=== PATIENT | male | born 1940 | race Caucasian/White ===

== ENCOUNTER 2017-12-19 10:27 | Inpatient (IN) ==
[2017-12-19] MEDS ORDERED: *HR* HYDROcodone/Acet 5/325 mg TABLET PO ONE (12:14)
--- NOTE | 2017-12-19 12:41 | Emergency Department Note ---
START Narrative - START START: I examined this patient and my medical decision-making was reviewed with the Resident Physician. I agree with the documented findings, disposition and treatment plan as described except to the extent set forth below. 77-year-old male who suffered a left tibial plateau fracture is here in the ER today as he is unable to get around well at home. Patient will be admitted to the hospital service and consult with orthopedics. Patient is unable to get around well at home. He is unable to ambulate. The family cannot take care of him
--- NOTE | 2017-12-19 12:50 | Emergency Department Note ---
Disposition Clinical Impression: Tibial plateau fracture, left Qualifiers: Encounter type: initial encounter Fracture type: closed Qualified Code(s): S82.142A - Displaced bicondylar fracture of left tibia, initial encounter for closed fracture Disposition: Admitted As Inpatient Condition: Fair Time of Disposition: 12:51 General Adult HPI - General Chief complaint: ED Extremity Injury, Lower Stated complaint: re-eval LLE injury Time Seen by Provider: 12/19/17 10:49 Source: family Mode of arrival: EMS Limitations: no limitations Nursing Notes Reviewed: Yes Vital Signs Reviewed: Yes - History of Present Illness HPI Narrative: Patient is a 77-year-old male with a past medical history CVA, DM, and HTN presents to the ED for reevaluation of a left tibial plateau fracture. Patient states he incidentally occurred 3 days ago when he slipped on ice on his front porch and fell down onto his left knee and is evaluated at an outside emergency department and diagnosed with a fracture and notified to follow-up with orthopedics Dr. Hahn on the following day. His states that they had difficulty getting him transferred to his appointments and had no other option but to manage transport to the [place] in which she was transferred here. His states that she does not feel safe taking him home because she is unable to transport him or find him transportation she prefer that he be admitted to have his fracture addressed. Patient has no other complaints at this time states that his pain is controlled with the knee immobilizer on. Denies any numbness or tingling of the lower extremity. Pain Scale: 8 - Related Data Home Medications Medication Instructions Recorded Confirmed Aspirin [Adult Aspirin Regimen] 81 mg PO DAILY 12/19/17 12/19/17 Atenolol [Tenormin] 12.5 mg PO DAILY 12/19/17 12/19/17 Atorvastatin [Lipitor] 40 mg PO HS 12/19/17 12/19/17 Cholecalciferol (D-3) [Vitamin D] 5,000 unit PO DAILY 12/19/17 12/19/17 Clopidogrel [Plavix] 75 mg PO DAILY 12/19/17 12/19/17 FLUoxetine HCl [PROzac] 30 mg PO DAILY 12/19/17 12/19/17 Finasteride [Proscar] 5 mg PO DAILY 12/19/17 12/19/17 GlipiZIDE [Glipizide Xl] 2.5 mg PO DAILY 12/19/17 12/19/17 Melatonin/Pyridoxine HCl (B6) 1 tab PO HS 12/19/17 12/19/17 [Melatonin 5 mg Tablet] Multivitamin [One Daily 1 tab PO DAILY 12/19/17 12/19/17 Multivitamin] Potassium Chloride [Klor-Con 10] 20 meq PO BID 12/19/17 12/19/17 Ranitidine HCl [Zantac] 150 mg PO BID 12/19/17 12/19/17 amLODIPine [Norvasc] 5 mg PO DAILY 12/19/17 12/19/17 hydroCHLOROthiazide 25 mg PO DAILY 12/19/17 12/19/17 [Hydrochlorothiazide] Allergies Allergy/AdvReac Type Severity Reaction Status Date / Time No Known Allergies Allergy Verified 12/19/17 14:19 All systems ED: reviewed and negative except as stated. Review of Systems: As Per HPI Constitutional: Denies: fever, chills Musculoskeletal: Reports: other (Pain below left knee. Knee immobilizer in place. ) Integumentary: Denies: rash Past Medical History - Past Medical History Attestation: Yes The following information was validated with the patient. Medical history: Reports: cancer, CVA, diabetes, hypertension Psychiatric history: Reports: anxiety - Social History Smoking Status: Current every day smoker Smokeless Tobacco Status: No Alcohol use: Reports: occasionally Drug use: Reports: none Physical Exam CONSTITUTIONAL: Alert and oriented X3, well-nourished, well appearing, in no apparent distress HEAD: Normocephalic; atraumatic. EYES: PERRL, no scleral icterus. NOSE: The nose is normal in appearance without rhinorrhea RESP: Normal chest excursion with respiration; breath sounds clear and equal bilaterally; no wheezes, rhonchi, or rales CARD: Regular rhythm, without murmurs, rub or gallop ABD: Non-distended; non-tender, soft,without rigidity, rebound or guarding EXT: Patient has tenderness over the medial aspect of the proximal portion of his left tibia. He did have a knee immobilizer and placed on arrival. He has limited range of motion in the left knee due to pain. No area of ecchymosis. Small abrasion over anterior proximal tibia. Patient has 2+ DP pulses, normal color and no edema present bilaterally. SKIN: Normal for age and race; warm and dry; no apparent lesions - General Limitations: no limitations General appearance: alert Course Course Narrative: Discussed with the patient that his repeat x-ray findings are consistent with his history from his prior visit and outside facility. Discussed consult with orthopedics Dr. Whaley and plans for the patient to be admitted to the hospital for further evaluation and treatment of his fracture. I also ordered the patient a [place] for pain relief. I discussed the patient's case with the hospitalist cash application clerk Dr. Jones he agreed to accept the patient. Vital Signs Temperature 98.8 F 12/19/17 10:34 Pulse Rate 75 12/19/17 10:34 Respiratory Rate 18 12/19/17 10:34 Blood Pressure 173/82 12/19/17 10:34 O2 Sat by Pulse Oximetry 94 12/19/17 10:34 Temperature 98.3 F 12/19/17 19:23 Pulse Rate 80 12/19/17 19:23 Respiratory Rate 17 12/19/17 19:23 Blood Pressure 144/81 12/19/17 19:23 O2 Sat by Pulse Oximetry 91 12/19/17 19:23 Oxygen Delivery Oxygen Delivery Room Air Medical Decision Making - Medical Records Medical records reviewed: Yes I reviewed the patient's medical records. - Lab Data Result diagrams: 12/19/17 15:01 12/19/17 15:01 - Radiology Data Radiology results reviewed: Yes I reviewed the patient's radiology results. Knee X-Ray 12/19/17 11:18 IMPRESSION: 1. Comminuted fracture involving the medial tibial plateau, extending intra-articularly through the tibial spines and lateral tibial plateau. D/ / 12/19/2017 12:41:55 Castro Hinojosa MD / aneta Interpreting Provider: Castro Hinojosa MD
[2017-12-19] MEDS ORDERED: Naloxone 0.4 MG/ML INJ IVP PRN ×2 (13:06→14:06)
[2017-12-19] MEDS ORDERED: Acetaminophen 325 MG TABLET PO PRN (14:06)
[2017-12-19] MEDS ORDERED: *HR* HYDROcodone/Acet 5/325 mg TABLET PO PRN (14:06)
[2017-12-19] MEDS ORDERED: *HR* Dextrose 50 % in Water (Syg) 50 ML SYRINGE IVP PRN (14:27)
[2017-12-19] MEDS ORDERED: D5% in Water 1,000 ML IVC PRN (14:27)
[2017-12-19] MEDS ORDERED: Dextrose Gel 15 GM/37.5 ML TUBE PO PRN ×2 (14:27)
--- NOTE | 2017-12-19 15:07 | Internal Med History&Physical ---
Date of Encounter: 12/19/17 Time of Encounter: 14:58 Assessment and Plan (1) Tibial plateau fracture, left Current visit: Yes Status: Acute - Leg leg has a brace on, ortho consulted. - DVT prophylaxis. Qualifiers: Encounter type: initial encounter Fracture type: closed Qualified Code(s) : S82.142A - Displaced bicondylar fracture of left tibia, initial encounter for closed fracture (2) CAD (coronary artery disease) Current visit: No Status: Chronic - Hx of CAD with 2 stents. - discussed with ortho, continue asa and plavix for now, continue other home meds for CAD including BB and statins. - continue tele. Qualifiers: Coronary Disease-Associated Artery/Lesion type: [place] artery [place] vs. transplanted heart: [place] heart Associated angina: without angina Qualified Code(s): I25.10 - Atherosclerotic heart disease of [place] coronary artery without angina pectoris (3) HTN (hypertension) Current visit: No Status: Chronic - monitor, continue home meds. Qualifiers: Hypertension type: essential hypertension Qualified Code(s): I10 - Essential (primary) hypertension (4) Diabetes Current visit: No Status: Chronic - hold oral agent, started on insulin sliding scale. Qualifiers: Diabetes mellitus type: type 2 Diabetes mellitus fpc insulin use: without fpc use Diabetes mellitus complication status: without complication Qualified Code(s): E11.9 - Type 2 diabetes mellitus without complications (5) Stroke Current visit: No Status: Chronic - continue asa and plavix. Qualifiers: CVA mechanism: unspecified Qualified Code(s): I63.9 - Cerebral infarction, unspecified (6) BPH (benign prostatic hyperplasia) Current visit: No Status: Chronic - continue home meds. Qualifiers: Lower urinary tract symptom presence: symptoms absent Qualified Code(s): N40.0 - Benign prostatic hyperplasia without lower urinary tract symptoms (7) Non-Hodgkin lymphoma Current visit: No Status: Chronic - on remission. Qualifiers: Follicular lymphoma type: unspecified follicular type Lymphoma site: unspecified region Qualified Code(s): C82.90 - Follicular lymphoma, unspecified, unspecified site Internal Medicine - H&P: HPI Admitted From: Home Plans for Post Hospital Care: Transfer Inp Rehab Fac History of present illness: Mr. Vallejo is a 77 year old male past medical history of CAD with stents placement, diabetes, hypertension, stroke, BPH, and hyperlipidemia presented from home with left leg pain. He was seen here at ED on 12/16/2017 for the same complaint. X-ray of left leg at that time revealed left tibia plateau fracture. Patient was referred to [place] for further treatment. He was then discharged home with left lower extremity brace. While waiting to be seen by physician at [place], today he developed severe left leg pain when walking. His states she cannot take care of him because of his mobility issue. She called emergency room and was directed to come back immediately. Patient denies any fever chills or night sweats. He has no left leg numbness, swelling, or tingling. There is no pain if left leg was kept still. Repeated x-ray of the left leg showed comminuted left tibial plateau fracture. Ortho was consulted. Patient will be admitted as inpatient for further management. Past Med Surg Social Fam HX - Past Medical History Medical history: cancer, coronary artery disease, CVA, diabetes, hypertension Psychiatric history: anxiety - Social History Smoking Status: Current every day smoker Smokeless Tobacco Status: No Alcohol use: occasionally Drug use: none Internal Medicine - H&P: Meds Aspirin [Adult Aspirin Regimen] 81 mg PO DAILY 12/19/17 [History] Atenolol [Tenormin] 12.5 mg PO DAILY 12/19/17 [History] Atorvastatin [Lipitor] 40 mg PO HS 12/19/17 [History] Cholecalciferol (D-3) [Vitamin D] 5,000 unit PO DAILY 12/19/17 [History] Clopidogrel [Plavix] 75 mg PO DAILY 12/19/17 [History] FLUoxetine HCl [PROzac] 30 mg PO DAILY 12/19/17 [History] Finasteride [Proscar] 5 mg PO DAILY 12/19/17 [History] GlipiZIDE [Glipizide Xl] 2.5 mg PO DAILY 12/19/17 [History] Melatonin/Pyridoxine HCl (B6) [Melatonin 5 mg Tablet] 1 tab PO HS 12/19/17 [ History] Multivitamin [One Daily Multivitamin] 1 tab PO DAILY 12/19/17 [History] Potassium Chloride [Klor-Con 10] 20 meq PO BID 12/19/17 [History] Ranitidine HCl [Zantac] 150 mg PO BID 12/19/17 [History] amLODIPine [Norvasc] 5 mg PO DAILY 12/19/17 [History] hydroCHLOROthiazide [Hydrochlorothiazide] 25 mg PO DAILY 12/19/17 [History] 3 Allergy/AdvReac Type Severity Reaction Status Date / Time No Known Allergies Allergy Verified 12/19/17 14:19 All Systems PM: A 10-system review of systems was performed and is negative for pertinent findings except as documented above in the HPI. Review of systems: REVIEW OF SYSTEMS: CONSTITUTIONAL: see HPI. HEENT: Eyes: No visual loss, blurred vision, double vision or yellow sclerae. Ears, Nose, Throat: No hearing loss, sneezing, congestion, runny nose or sore throat. SKIN: No rash or itching. CARDIOVASCULAR: No chest pain, chest pressure or chest discomfort. No palpitations or edema. RESPIRATORY: No shortness of breath, cough or sputum. GASTROINTESTINAL: No anorexia, nausea, vomiting or diarrhea. No abdominal pain or blood. GENITOURINARY: No dysuria, urgency, or frequency. NEUROLOGICAL: No headache, dizziness, syncope, paralysis, ataxia, numbness or tingling in the extremities. No change in bowel or bladder control. MUSCULOSKELETAL: see HPI. HEMATOLOGIC: No anemia, bleeding or bruising. LYMPHATICS: No enlarged nodes. No history of splenectomy. PSYCHIATRIC: No history of depression or anxiety. ENDOCRINOLOGIC: No reports of sweating, cold or heat intolerance. No polyuria or polydipsia. - Constitutional Vitals: Temp Pulse Resp BP Pulse Ox 98.3 F 72 16 157/69 93 12/19/17 14:42 12/19/17 14:42 12/19/17 14:42 12/19/17 14:42 12/19/17 14:42 Exam: PHYSICAL EXAMINATION: GENERAL APPEARANCE: The patient is alert, oriented and in no acute distress. HEENT: Head is normocephalic. The sinuses are nontender. Pupils are equal and reactive. The nares are patent. Oropharynx clear without lesions. NECK: Supple without lymphadenopathy. HEART: Regular rate and rhythm. LUNGS: No crackles or wheezes are heard. ABDOMEN: Soft, nontender, nondistended with good bowel sounds heard. Inguinal area is normal. EXTREMITIES: Left leg warm to touch, and positive pulse. NEUROLOGICAL: Gross nonfocal. SKIN: Warm and dry without any rash. Internal Med - H&P Results - Labs CBC & Chem 7: 12/19/17 15:01
[2017-12-19 15:12] LABS: Basophils # 0.1 K/mcL (0.0-0.2); Basophils % 0.4 %; Eosinophils # 0.1 K/mcL (0.0-0.6); Eosinophils % 0.5 %; Hematocrit 45.5 % (37.5-50.1); Hemoglobin 14.9 g/dL (12.9-16.9); Immature Granulocytes % 0.4 % (0-4); Lymphocytes % 15.5 %; Mean Corpuscular HGB Conc 32.7 g/dL (31.6-35.5); Mean Corpuscular Volume 88.5 fL (83.0-100.0); Mean Platelet Volume 11.7 fL (9.4-12.4); Monocytes # 1.9 K/mcL (0.0-1.3); Monocytes % 9.9 %; Neutrophils # 14.1 K/mcL (1.6-8.9); Platelet Count 268 K/mcL (140-400); Red Blood Count 5.14 M/mcL (4.19-5.50); Red Cell Distribution Width 14.9 % (11.5-14.5); Segmented Neutrophils % 73.3 %
[2017-12-19 15:17] LABS: INR 1.2; Prothrombin Time 12.5 Seconds (9.4-12.1)
--- NOTE | 2017-12-19 15:37 | Orthopedic Consult Note ---
Date of Encounter: 12/19/17 Time of Encounter: 15:35 Assessment and Plan (1) Tibial plateau fracture, left Current Visit: Yes Status: Acute I discussed with the patient the option of surgery versus closed treatment in a knee immobilizer. The patient has very little interest in walking. He has declined surgery. I discussed with the patient and his that he will still need to be nonweightbearing to the left lower extremity. Continue use of the knee immobilizer. The patient does not want to go to a rehabilitation facility. He is interested in possible home health aide. He seems to be a poor candidate for acute physical therapy. A consult with physical therapy will be put in to help him with transfers Have patient follow-up with a [facility] in 1 week. Qualifiers: Encounter type: initial encounter Fracture type: closed Qualified Code(s) : S82.142A - Displaced bicondylar fracture of left tibia, initial encounter for closed fracture History of Present Illness Chief complaint: Left knee pain HPI: Mr. Vallejo is a 77 year old male who is a minimal ambulator, patient slipped on the ice on Thursday 3 days ago sustaining a tibial plateau fracture. He was evaluated at the [facility] ER. The patient is placed into a knee immobilizer with outpatient follow-up. He was unable to go to his outpatient follow-up, and came to the [place] ER today. The patient states he minimally ambulates. He has loss of interest and going places. He does have pain to the knee which is tolerable. His is unable to manage him at home, with him being nonweightbearing to the left lower extremity. Past Med Surg Social Fam HX - Past Medical History Medical history: cancer, coronary artery disease, CVA, diabetes, hypertension Psychiatric history: anxiety - Social History Smoking Status: Current every day smoker Smokeless Tobacco Status: No Alcohol use: occasionally Drug use: none Medications and Allergies Aspirin [Adult Aspirin Regimen] 81 mg PO DAILY 12/19/17 [History] Atenolol [Tenormin] 12.5 mg PO DAILY 12/19/17 [History] Atorvastatin [Lipitor] 40 mg PO HS 12/19/17 [History] Cholecalciferol (D-3) [Vitamin D] 5,000 unit PO DAILY 12/19/17 [History] Clopidogrel [Plavix] 75 mg PO DAILY 12/19/17 [History] FLUoxetine HCl [PROzac] 30 mg PO DAILY 12/19/17 [History] Finasteride [Proscar] 5 mg PO DAILY 12/19/17 [History] GlipiZIDE [Glipizide Xl] 2.5 mg PO DAILY 12/19/17 [History] Melatonin/Pyridoxine HCl (B6) [Melatonin 5 mg Tablet] 1 tab PO HS 12/19/17 [ History] Multivitamin [One Daily Multivitamin] 1 tab PO DAILY 12/19/17 [History] Potassium Chloride [Klor-Con 10] 20 meq PO BID 12/19/17 [History] Ranitidine HCl [Zantac] 150 mg PO BID 12/19/17 [History] amLODIPine [Norvasc] 5 mg PO DAILY 12/19/17 [History] hydroCHLOROthiazide [Hydrochlorothiazide] 25 mg PO DAILY 12/19/17 [History] 3 Allergy/AdvReac Type Severity Reaction Status Date / Time No Known Allergies Allergy Verified 12/19/17 14:19 All Systems Reviewed: The remainder of the systems were reviewed and are negative Physical Exam - Constitutional Vitals: Temp Pulse Resp BP Pulse Ox 98.3 F 72 16 157/69 93 12/19/17 14:42 12/19/17 14:42 12/19/17 14:42 12/19/17 14:42 12/19/17 14:42 General appearance IM: A&O X 3, pleasant, no acute distress, answers questions appropriately Exam: The patient presents in a wheelchair. A knee immobilizer is on his left lower extremity. His calf is soft and nontender. He has good motion of the ankle and foot, sensation intact, toes warm to touch. His right calf is soft and nontender Results - Labs Result Diagrams: 12/19/17 15:01 Labs: Abnormal lab results WBC 19.2 K/mcL (4.3-11.1) H 12/19/17 15:01 RDW 14.9 % (11.5-14.5) H 12/19/17 15:01 Neutrophils # 14.1 K/mcL (1.6-8.9) H 12/19/17 15:01 Monocytes # 1.9 K/mcL (0.0-1.3) H 12/19/17 15:01 PT 12.5 Seconds (9.4-12.1) H 12/19/17 15:01 H & H 12/19/17 Range/Units 15:01 Hgb 14.9 (12.9-16.9) g/dL Hct 45.5 (37.5-50.1) % All other labs normal. - Diagnostic results Knee x-ray: image reviewed (Left knee tibial plateau fracture, large medial fragment that is nondisplaced, small extension into the lateral plateau) Consult Discharge Plan - Plan [facility]errals: [facility] [Primary Care Provider[facility] - Carla Aggarwal [Family Provider] -
[2017-12-19 15:40] LABS: BUN/Creatinine Ratio 19 (6-26); Blood Urea Nitrogen 17 mg/dL (8-23); Calcium 9.4 mg/dL (8.6-10.3); Carbon Dioxide 29 mEq/L (23-29); Chloride 103 mEq/L (98-107); Glucose 114 mg/dL (70-105); Osmolality,Calculated 294 (280-300); Potassium 3.5 mEq/L (3.5-5.1); Sodium 141 mEq/L (136-145); eGFR For African Americans > 60 (> 60); eGFR For Non-African Americans > 60 (> 60)
[2017-12-19] MEDS: Insulin LISPRO 300 UNITS/3 ML VIAL SQ SCH ×2 (18:13→20:06)
[2017-12-19] MEDS: *HR* Heparin 5,000 UNIT/ML VIAL SQ SCH ×2 (18:17→23:29)
[2017-12-19] MEDS: Famotidine 20 MG TABLET PO SCH (20:04)
[2017-12-19] MEDS: Melatonin 3 MG TABLET PO SCH (20:04)
[2017-12-20] MEDS: Aspirin Enteric Coated 81 MG Tablet PO SCH (08:36)
[2017-12-20] MEDS: FLUoxetine HCl 10 MG CAPSULE PO SCH (08:36)
[2017-12-20] MEDS: Cholecalciferol (D-3) 1,000 UNIT TABLET PO SCH (08:36)
[2017-12-20] MEDS: Famotidine 20 MG TABLET PO SCH ×2 (08:37→21:11)
[2017-12-20] MEDS: Multivit/Ca/Min/Fe/FA 1 TAB TABLET PO SCH (08:37)
[2017-12-20] MEDS: Finasteride 5 MG TABLET PO SCH (08:37)
[2017-12-20] MEDS: hydroCHLOROthiazide 25 MG TABLET PO SCH (08:37)
[2017-12-20] MEDS: *HR* Heparin 5,000 UNIT/ML VIAL SQ SCH ×3 (08:37→23:07)
[2017-12-20] MEDS: amLODIPine 5 MG TABLET PO SCH (08:37)
[2017-12-20] MEDS: Insulin LISPRO 300 UNITS/3 ML VIAL SQ SCH ×4 (08:42→21:12)
--- NOTE | 2017-12-20 10:21 | Internal Med Progress Note ---
<Sandeep Monzon - Last Filed: 12/20/17 10:35> Date of Encounter: 12/20/17 Time of Encounter: 08:45 - Assessment and plan (1) Tibial plateau fracture, left Current Visit: Yes Status: Acute Assessment and plan: Acute left tibial plateau fracture, stable Ortho was consulted from the ED, patient is not interested in surgery Ortho recommends non-weightbearing, consult to PT Follow-up with ortho in 1 week Qualifiers: Encounter type: initial encounter Fracture type: closed Qualified Code(s) : S82.142A - Displaced bicondylar fracture of left tibia, initial encounter for closed fracture (2) CAD (coronary artery disease) Current Visit: No Status: Chronic Assessment and plan: CAD s/p stents x2 Continue home meds Qualifiers: Coronary Disease-Associated Artery/Lesion type: [place] artery [place] vs. transplanted heart: [place] heart Associated angina: without angina Qualified Code(s): I25.10 - Atherosclerotic heart disease of [place] coronary artery without angina pectoris (3) HTN (hypertension) Current Visit: No Status: Chronic Assessment and plan: Stable, Continue home meds Qualifiers: Hypertension type: essential hypertension Qualified Code(s): I10 - Essential (primary) hypertension (4) Diabetes Current Visit: No Status: Chronic Assessment and plan: Blood glucose in good control, SSI Qualifiers: Diabetes mellitus type: type 2 Diabetes mellitus [place] insulin use: without nursing home use Diabetes mellitus complication status: without complication Qualified Code(s): E11.9 - Type 2 diabetes mellitus without complications (5) Stroke Current Visit: No Status: Chronic Assessment and plan: continue asa and plavix Qualifiers: CVA mechanism: unspecified Qualified Code(s): I63.9 - Cerebral infarction, unspecified (6) BPH (benign prostatic hyperplasia) Current Visit: No Status: Chronic Assessment and plan: continue home meds Qualifiers: Lower urinary tract symptom presence: symptoms absent Qualified Code(s): N40.0 - Benign prostatic hyperplasia without lower urinary tract symptoms (7) DVT prophylaxis Current Visit: Yes Status: Acute Assessment and plan: SQ Heparin - Subjective Interval history: The patient is resting comfortably in the chair at the time of examination. He says that he is generally feeling well although his left leg is hurting pretty significantly. He has no other acute complaints. - Constitutional Vitals: Temp Pulse Resp BP Pulse Ox 98.3 F 82 16 158/78 95 12/20/17 07:17 12/20/17 07:17 12/20/17 07:17 12/20/17 07:17 12/20/17 07:17 Exam: Gen: Vitals noted. No acute distress. AAOx3 HEENT: PERRL/EOMI, oropharynx clear, Normocephalic, atraumatic Neck: Supple. No adenopathy. Cardiac: RRR, no murmur, +S1/S2 Pulmonary: CTA bilaterally, no wheezes, rales or rhonchi, equal chest expansion Abdomen: soft, nontender, BS noted, no guarding. There is mild distension which the patient says is his baseline Back: Nontender throughout. MSK: ROM intact, no joint swelling noted Extremities: no BLE edema, nontender calf, no cyanosis or clubbing Neuro: A&Ox3, moves all extremities, no focal deficits Psych: Appropriate mood and behavior Internal Medicine: Result - Labs CBC & Chem 7: 12/19/17 15:01 12/19/17 15:01 Labs: Short CBC 12/19/17 Range/Units 15:01 WBC 19.2 H (4.3-11.1) K/mcL Hgb 14.9 (12.9-16.9) g/dL Hct 45.5 (37.5-50.1) % Plt Count 268 (140-400) K/mcL Neutrophils # 14.1 H (1.6-8.9) K/mcL BMP 12/19/17 15:01 Sodium 141 Potassium 3.5 Chloride 103 Carbon Dioxide 29 BUN 17 Creatinine 0.89 Glucose 114 H Calcium 9.4 - ABG Interpretation ABG results: PT/INR, D-dimer PT 12.5 Seconds (9.4-12.1) H 12/19/17 15:01 Consult Discharge Plan - Plan [facility]errals: [facility] [Primary Care Provider[facility] - Carla Aggarwal [Family Provider] - <Addi Mckeon - Last Filed: 12/20/17 18:08> Date of Encounter: 12/20/17 - Constitutional Vitals: Temp Pulse Resp BP Pulse Ox 98.7 F 78 16 145/73 95 12/20/17 16:13 12/20/17 16:13 12/20/17 16:13 12/20/17 16:13 12/20/17 16:13 Internal Medicine: Result - Labs CBC & Chem 7: 12/19/17 15:01 12/19/17 15:01 Labs: Urine 12/20/17 Range/Units 13:25 Urine Color Dark Yellow (Yellow) Urine Clarity Clear (Clear) Urine pH 6.0 (5.0-8.0) pH Units Ur Specific [place] 1.023 (1.010-1.025) Urine Protein 30 H (Neg-Trace) mg/dL Urine Glucose (UA) Normal (Normal) mg/dL - ABG Interpretation ABG results: PT/INR, D-dimer PT 12.5 Seconds (9.4-12.1) H 12/19/17 15:01 - Attending Attestation I examined this patient and my medical decision-making was reviewed with the Resident Physician Dr. Monzon. I agree with the documented findings, disposition and treatment plan as described except to the extent set forth below. Mr. Vallejo is a 77 year old male past medical history of CAD with stents placement, diabetes, hypertension, stroke, BPH, and hyperlipidemia presented from home with left leg pain. He was seen here at ED on 12/16/2017 for the same complaint. X-ray of left leg at that time revealed left tibia plateau fracture. Pt is not able to ambulate well and he does have severe pain. Gen: A, A, O x 3 Chest: Diminished BS b/l , no crackles Heart: S1S2 + No rales Ext: Moderate tenderness in Left knee a/p 1. Intractable Left leg pain 2. Tibial plateau fracture, left Ortho consulted PT / OT eval IV analgesics PRN
[2017-12-20 13:51] LABS: Bilirubin,Urine Negative (Negative); Blood,Urine Negative (Negative); Clarity,Urine Clear (Clear); Color,Urine Dark Yellow (Yellow); Glucose,Urine (UA) Normal (Normal); Ketones,Urine Negative (Negative); Leukocyte Esterase,Urine Trace (Negative); Nitrite,Urine Negative (Negative); Protein,Urine 30 mg/dL (Neg-Trace); Specific Gravity,Urine 1.023 (1.010-1.025); Urobilinogen,Urine Normal (Normal)
[2017-12-20 13:52] LABS: Bacteria,Urine None Seen per hpf (None-Few); Hyaline Casts,Urine None Seen per lpf (None-Few); Squamous Epithelial Cell,Urine Many per lpf (None-Few); WBC,Urine 0-3 per hpf (0-3)
[2017-12-20] MEDS ORDERED: *HR* FentaNYL (PF) 100 MCG/2 ML VIAL IVP PRN (18:09)
[2017-12-20] MEDS ORDERED: OXYCODONE Oral CONC 10 MG/0.5 ML ORAL.SYG SL PRN (19:52)
[2017-12-20] MEDS: Melatonin 3 MG TABLET PO SCH (21:11)
[2017-12-21 06:38] LABS: Basophils # 0.1 K/mcL (0.0-0.2); Basophils % 0.6 %; Eosinophils # 0.3 K/mcL (0.0-0.6); Hematocrit 39.7 % (37.5-50.1); Immature Granulocytes % 0.4 % (0-4); Lymphocytes # 2.7 K/mcL (0.6-4.6); Mean Corpuscular HGB Conc 33.2 g/dL (31.6-35.5); Mean Corpuscular Hemoglobin 28.8 pg (28.0-33.3); Mean Corpuscular Volume 86.7 fL (83.0-100.0); Mean Platelet Volume 11.8 fL (9.4-12.4); Monocytes # 1.6 K/mcL (0.0-1.3); Monocytes % 11.6 %; Platelet Count 282 K/mcL (140-400); Red Blood Count 4.58 M/mcL (4.19-5.50); Red Cell Distribution Width 14.7 % (11.5-14.5); Segmented Neutrophils % 65.4 %
[2017-12-21 06:40] LABS: Hemoglobin 13.2 g/dL (12.9-16.9)
[2017-12-21 07:12] LABS: BUN/Creatinine Ratio 25 (6-26); Blood Urea Nitrogen 15 mg/dL (8-23); Calcium 8.8 mg/dL (8.6-10.3); Carbon Dioxide 28 mEq/L (23-29); Chloride 105 mEq/L (98-107); Glucose 102 mg/dL (70-105); Osmolality,Calculated 295 (280-300); Potassium 2.9 mEq/L (3.5-5.1); Sodium 142 mEq/L (136-145); eGFR For African Americans > 60 (> 60); eGFR For Non-African Americans > 60 (> 60)
[2017-12-21] MEDS: Insulin LISPRO 300 UNITS/3 ML VIAL SQ SCH ×4 (07:57→22:31)
[2017-12-21] MEDS: Famotidine 20 MG TABLET PO SCH ×2 (08:04→22:32)
[2017-12-21] MEDS: Aspirin Enteric Coated 81 MG Tablet PO SCH (08:04)
[2017-12-21] MEDS: amLODIPine 5 MG TABLET PO SCH (08:04)
[2017-12-21] MEDS: Cholecalciferol (D-3) 1,000 UNIT TABLET PO SCH (08:04)
[2017-12-21] MEDS: Finasteride 5 MG TABLET PO SCH (08:04)
[2017-12-21] MEDS: Multivit/Ca/Min/Fe/FA 1 TAB TABLET PO SCH (08:05)
[2017-12-21] MEDS: FLUoxetine HCl 10 MG CAPSULE PO SCH (08:05)
[2017-12-21] MEDS: *HR* Heparin 5,000 UNIT/ML VIAL SQ SCH ×2 (08:06→17:30)
[2017-12-21] MEDS: hydroCHLOROthiazide 25 MG TABLET PO SCH (08:11)
[2017-12-21] MEDS ORDERED: Potassium Chloride 40 MEQ, Lidocaine 1% 2 ML in D5% in Water 500 ML IVPB ONE (08:57)
--- NOTE | 2017-12-21 11:07 | Internal Med Progress Note ---
<Sandeep Monzon - Last Filed: 12/21/17 16:49> Date of Encounter: 12/21/17 Time of Encounter: 09:15 - Assessment and plan (1) Tibial plateau fracture, left Current Visit: Yes Status: Acute Assessment and plan: Acute left tibial plateau fracture, stable Ortho was consulted from the ED, patient is not interested in surgery Ortho recommends non-weightbearing, consult to PT PT recommends swing bed for rehab Likely D/C tomorrow Follow-up with ortho in 1 week Qualifiers: Encounter type: initial encounter Fracture type: closed Qualified Code(s) : S82.142A - Displaced bicondylar fracture of left tibia, initial encounter for closed fracture (2) Hypokalemia Current Visit: Yes Status: Acute Assessment and plan: Hypokalemia in otherwise metabolically stable patient, K+ 2.9 Mag 2.0 Patient takes 20mg PO KCl BID at home I will replete the patient's K+ with IV and PO Potassium (3) CAD (coronary artery disease) Current Visit: No Status: Chronic Assessment and plan: CAD s/p stents x2 Continue home meds Qualifiers: Coronary Disease-Associated Artery/Lesion type: [place] artery [place] vs. transplanted heart: [place] heart Associated angina: without angina Qualified Code(s): I25.10 - Atherosclerotic heart disease of [place] coronary artery without angina pectoris (4) HTN (hypertension) Current Visit: No Status: Chronic Assessment and plan: Stable, Continue home meds Qualifiers: Hypertension type: essential hypertension Qualified Code(s): I10 - Essential (primary) hypertension (5) Diabetes Current Visit: No Status: Chronic Assessment and plan: Blood glucose in good control, SSI Qualifiers: Diabetes mellitus type: type 2 Diabetes mellitus snf insulin use: without snf use Diabetes mellitus complication status: without complication Qualified Code(s): E11.9 - Type 2 diabetes mellitus without complications (6) Stroke Current Visit: No Status: Chronic Assessment and plan: continue asa and plavix Qualifiers: CVA mechanism: unspecified Qualified Code(s): I63.9 - Cerebral infarction, unspecified (7) BPH (benign prostatic hyperplasia) Current Visit: No Status: Chronic Assessment and plan: continue home meds Qualifiers: Lower urinary tract symptom presence: symptoms absent Qualified Code(s): N40.0 - Benign prostatic hyperplasia without lower urinary tract symptoms (8) DVT prophylaxis Current Visit: Yes Status: Acute Assessment and plan: SQ Heparin - Subjective Interval history: The patient is resting comfortably in the bed at the time of examination. He is accompanied by his who explains that she is unable to care for him at home. He otherwise says that she's doing well. He says that his pain is well controlled while seated, however increases to 9/10 when weight bearing. - Constitutional Vitals: Temp Pulse Resp BP Pulse Ox 99.3 F 82 16 159/78 92 12/21/17 07:16 12/21/17 07:16 12/21/17 07:16 12/21/17 07:16 12/21/17 07:16 Exam: Gen: Vitals noted. No acute distress. AAOx3 HEENT: Normocephalic, atraumatic Neck: Supple. No adenopathy. Cardiac: RRR, no murmur, +S1/S2 Pulmonary: CTA bilaterally, no wheezes, rales or rhonchi, equal chest expansion Abdomen: soft, nontender, BS noted, no guarding. There is mild distension which the patient says is his baseline Back: Nontender throughout. MSK: Continued pain in left leg with ROM limited by pain. Extremities: no BLE edema, nontender calf, no cyanosis or clubbing Neuro: A&Ox3, moves all extremities, no focal deficits Psych: Appropriate mood and behavior Internal Medicine: Result - Labs CBC & Chem 7: 12/21/17 04:27 12/21/17 04:27 Labs: Short CBC 12/21/17 Range/Units 04:27 WBC 13.7 H (4.3-11.1) K/mcL Hgb 13.2 D (12.9-16.9) g/dL Hct 39.7 (37.5-50.1) % Plt Count 282 (140-400) K/mcL Neutrophils # 9.0 H (1.6-8.9) K/mcL BMP 12/21/17 04:27 Sodium 142 Potassium 2.9 L Chloride 105 Carbon Dioxide 28 BUN 15 Creatinine 0.60 L Glucose 102 Calcium 8.8 Urine 12/20/17 Range/Units 13:25 Urine Color Dark Yellow (Yellow) Urine Clarity Clear (Clear) Urine pH 6.0 (5.0-8.0) pH Units Ur Specific [place] 1.023 (1.010-1.025) Urine Protein 30 H (Neg-Trace) mg/dL Urine Glucose (UA) Normal (Normal) mg/dL - ABG Interpretation ABG results: PT/INR, D-dimer PT 12.5 Seconds (9.4-12.1) H 12/19/17 15:01 Consult Discharge Plan - Plan [facility]errals: [facility]Primary Care Provider[facility] - Carla Aggarwal [Family Provider] - <Tima Kilpatrick Munir - Last Filed: 12/21/17 17:50> Date of Encounter: 12/21/17 - Constitutional Vitals: Temp Pulse Resp BP Pulse Ox 99.2 F 75 14 132/79 91 12/21/17 14:22 12/21/17 14:22 12/21/17 14:22 12/21/17 14:22 12/21/17 14:22 Internal Medicine: Result - Labs CBC & Chem 7: 12/21/17 04:27 12/21/17 04:27 Labs: Short CBC 12/21/17 Range/Units 04:27 WBC 13.7 H (4.3-11.1) K/mcL Hgb 13.2 D (12.9-16.9) g/dL Hct 39.7 (37.5-50.1) % Plt Count 282 (140-400) K/mcL Neutrophils # 9.0 H (1.6-8.9) K/mcL BMP 12/21/17 04:27 Sodium 142 Potassium 2.9 L Chloride 105 Carbon Dioxide 28 BUN 15 Creatinine 0.60 L Glucose 102 Calcium 8.8 - ABG Interpretation ABG results: PT/INR, D-dimer PT 12.5 Seconds (9.4-12.1) H 12/19/17 15:01 - Attending Attestation I examined this patient and my medical decision-making was reviewed with the Resident Physician. I agree with the documented findings, disposition and treatment plan as described except to the extent set forth below.
[2017-12-21] MEDS: Melatonin 3 MG TABLET PO SCH (22:32)
[2017-12-21 23:21] LABS: BUN/Creatinine Ratio 27 (6-26); Blood Urea Nitrogen 21 mg/dL (8-23); Calcium 8.9 mg/dL (8.6-10.3); Carbon Dioxide 28 mEq/L (23-29); Chloride 106 mEq/L (98-107); Glucose 127 mg/dL (70-105); Osmolality,Calculated 297 (280-300); Potassium 3.8 mEq/L (3.5-5.1); Sodium 141 mEq/L (136-145); eGFR For African Americans > 60 (> 60); eGFR For Non-African Americans > 60 (> 60)
[2017-12-22] MEDS: *HR* Heparin 5,000 UNIT/ML VIAL SQ SCH ×2 (01:06→08:53)
[2017-12-22] MEDS: Insulin LISPRO 300 UNITS/3 ML VIAL SQ SCH ×2 (08:39→11:47)
[2017-12-22] MEDS: hydroCHLOROthiazide 25 MG TABLET PO SCH (08:53)
[2017-12-22] MEDS: FLUoxetine HCl 10 MG CAPSULE PO SCH (08:53)
[2017-12-22] MEDS: amLODIPine 5 MG TABLET PO SCH (08:53)
[2017-12-22] MEDS: Famotidine 20 MG TABLET PO SCH (08:53)
[2017-12-22] MEDS: Cholecalciferol (D-3) 1,000 UNIT TABLET PO SCH (08:54)
[2017-12-22] MEDS: Finasteride 5 MG TABLET PO SCH (08:54)
[2017-12-22] MEDS: Multivit/Ca/Min/Fe/FA 1 TAB TABLET PO SCH (08:54)
[2017-12-22 11:37] VITALS: BP 130/73
--- NOTE | 2017-12-22 13:26 | Discharge Summary ---
Date of Encounter: 12/22/17 Time of Encounter: 11:00 - Discharge Diagnosis (1) Tibial plateau fracture, left Priority: Primary Status: Acute Qualifiers: Encounter type: initial encounter Fracture type: closed Qualified Code(s) : S82.142A - Displaced bicondylar fracture of left tibia, initial encounter for closed fracture (2) Tobacco abuse Priority: Secondary Status: Chronic (3) BPH (benign prostatic hyperplasia) Priority: Secondary Status: Chronic Qualifiers: Lower urinary tract symptom presence: unspecified whether lower urinary tract symptoms present Qualified Code(s): N40.0 - Benign prostatic hyperplasia without lower urinary tract symptoms (4) CAD (coronary artery disease) Priority: Secondary Status: Chronic Qualifiers: Coronary Disease-Associated Artery/Lesion type: [place] artery [place] vs. transplanted heart: [place] heart Associated angina: without angina Qualified Code(s): I25.10 - Atherosclerotic heart disease of [place] coronary artery without angina pectoris (5) Diabetes Priority: Secondary Status: Chronic Qualifiers: Diabetes mellitus type: type 2 Diabetes mellitus fpc insulin use: without continuous churn buttermaker use Diabetes mellitus complication status: with unspecified complications Qualified Code(s): E11.8 - Type 2 diabetes mellitus with unspecified complications (6) HTN (hypertension) Priority: Secondary Status: Chronic Qualifiers: Hypertension type: essential hypertension Qualified Code(s): I10 - Essential (primary) hypertension (7) Non-Hodgkin lymphoma Priority: Secondary Status: Chronic Qualifiers: Follicular lymphoma type: unspecified follicular type Lymphoma site: unspecified region Qualified Code(s): C82.90 - Follicular lymphoma, unspecified, unspecified site (8) Stroke Priority: Secondary Status: Chronic Qualifiers: CVA mechanism: unspecified Qualified Code(s): I63.9 - Cerebral infarction, unspecified Hospital course: Mr. Vallejo is a 77 year old male with the above medical problems, was admitted with left leg pain status post mechanical fall. Left knee x-ray showed comminuted fracture involving the medial tibial plateau. Orthopedic surgery consulted, recommended no surgical intervention. PT/OT evaluation was done and recommend inpatient rehabilitation. He is medically stable for discharge. Discharge discussed with: patient - Time Spent with Patient Total time spent providing and/or coordinating discharge services: Greater than 30 minutes (40 min) - Discharge Medications Home Medications: Aspirin [Adult Aspirin Regimen] 81 mg PO DAILY 12/19/17 [History] Atenolol [Tenormin] 12.5 mg PO DAILY 12/19/17 [History] Atorvastatin [Lipitor] 40 mg PO HS 12/19/17 [History] Cholecalciferol (D-3) [Vitamin D] 5,000 unit PO DAILY 12/19/17 [History] Clopidogrel [Plavix] 75 mg PO DAILY 12/19/17 [History] FLUoxetine HCl [Prozac] 30 mg PO DAILY 12/19/17 [History] Finasteride [Proscar] 5 mg PO DAILY 12/19/17 [History] GlipiZIDE [Glipizide Xl] 2.5 mg PO DAILY 12/19/17 [History] Melatonin/Pyridoxine HCl (B6) [Melatonin 5 mg Tablet] 1 tab PO HS 12/19/17 [ History] Multivitamin [One Daily Multivitamin] 1 tab PO DAILY 12/19/17 [History] Potassium Chloride [Klor-Con 10] 20 meq PO BID 12/19/17 [History] Ranitidine HCl [Zantac] 150 mg PO BID 12/19/17 [History] amLODIPine [Norvasc] 5 mg PO DAILY 12/19/17 [History] hydroCHLOROthiazide [Hydrochlorothiazide] 25 mg PO DAILY 12/19/17 [History] Allergies/Adverse Reactions: 3 Allergy/AdvReac Type Severity Reaction Status Date / Time No Known Allergies Allergy Verified 12/19/17 14:19 Date of admission: 12/19/17 14:06 [facility] care physician: [facility] Consults: 12/19/17 15:47 Consult to Physical Therapy [CONS] Routine Comment: Evaluate, develop and implement POC Reason for Consult: Left knee tibial plateau fracture Nonweightbearing to left lower extremity Poor candidate for crutch training, assist with transfers Does patient have active BEDREST order?: No Is patient medically & hemodynamically stable?: Yes Discharging clinician: Joy Curtis Anticipated date of discharge: 12/22/17 - Constitutional Vitals: Temp Pulse Resp BP Pulse Ox 98.7 F 67 18 130/73 94 12/22/17 11:33 12/22/17 11:33 12/22/17 11:33 12/22/17 11:33 12/22/17 11:33 General appearance: Present: A&O X 2 - Cardiovascular Cardiovascular exam: Present: RRR, +S1, +S2. Absent: diastolic murmur, gallop, rubs, systolic murmur - Patient Status Disposition: Transfer Inpatient Rehab Fac Condition: Fair Functional capacity at discharge: uses cane/walker Overall status at discharge: patient is progressing back to baseline - Discharge Instructions [facility] Up With: [facility] [Primary Care Provider[facility] - Additional Instructions: F/up with PCP in 1-2 weeks - Diet and Activity Activity: as per physical therapy Diet: diabetic diet, low fat, low cholesterol, low salt diet - VTE Documentation of Mechanical Device: Intermittent pneumatic compression device
--- NOTE | 2017-12-22 13:29 | Physician Discharge Referral ---
ExtendedCare Referral Info Transfer To: [facility] Provider in Charge: Joy Curtis Provider in Charge after Transfer: PCP Institutional Level of Care: Intermediate - Diagnosis (1) Tibial plateau fracture, left Priority: Primary Status: Acute (2) Tobacco abuse Priority: Secondary Status: Chronic (3) BPH (benign prostatic hyperplasia) Priority: Secondary Status: Chronic (4) CAD (coronary artery disease) Priority: Secondary Status: Chronic (5) Diabetes Priority: Secondary Status: Chronic (6) HTN (hypertension) Priority: Secondary Status: Chronic (7) Non-Hodgkin lymphoma Priority: Secondary Status: Chronic (8) Stroke Priority: Secondary Status: Chronic Expected Duration of Placement: 2 weeks Prognosis: Fair Aware of Diagnosis: Patient Aware of Prognosis: Patient - Transfer Medications Home Medications: Aspirin [Adult Aspirin Regimen] 81 mg PO DAILY 12/19/17 [History] Atenolol [Tenormin] 12.5 mg PO DAILY 12/19/17 [History] Atorvastatin [Lipitor] 40 mg PO HS 12/19/17 [History] Cholecalciferol (D-3) [Vitamin D] 5,000 unit PO DAILY 12/19/17 [History] Clopidogrel [Plavix] 75 mg PO DAILY 12/19/17 [History] FLUoxetine HCl [PROzac] 30 mg PO DAILY 12/19/17 [History] Finasteride [Proscar] 5 mg PO DAILY 12/19/17 [History] GlipiZIDE [Glipizide Xl] 2.5 mg PO DAILY 12/19/17 [History] Melatonin/Pyridoxine HCl (B6) [Melatonin 5 mg Tablet] 1 tab PO HS 12/19/17 [ History] Multivitamin [One Daily Multivitamin] 1 tab PO DAILY 12/19/17 [History] Potassium Chloride [Klor-Con 10] 20 meq PO BID 12/19/17 [History] Ranitidine HCl [Zantac] 150 mg PO BID 12/19/17 [History] amLODIPine [Norvasc] 5 mg PO DAILY 12/19/17 [History] hydroCHLOROthiazide [Hydrochlorothiazide] 25 mg PO DAILY 12/19/17 [History] Allergies/Adverse Reactions: 3 Allergy/AdvReac Type Severity Reaction Status Date / Time No Known Allergies Allergy Verified 12/19/17 14:19 - Respiratory Orders Smoking Cessation: Smoking cessation has been advised. For more information, call the [place] Tobacco Quit Line at 4-494-KUHC-NOW. - Advance Directives Code Status: Full Code - Rehabiliation Orders Rehab Potential: Fair Rehab Orders: ROM Exercises, Evaluation for Physical Therapy, Evaluation for Occupational Therapy - Diet Orders No Concentrated Sweets (diabetic), Cardiac CERTIFICATION: I certify that the transfer of the above named patient to an Extended Care Facility is necessary for the continuing treatment of the diagnosis listed. The above information is true and accurate reflection of patient's current condition. Confidential - Redisclosure prohibited without a patient's written consent.
== END 2017-12-22 16:15 | DRG 563 ==
LOC: 3NENU 10:27 → EMEROO 10:27 → SUATTDRO 14:06 → 3NENU 14:27 → 3ANU 12-21 13:43
PROVIDERS: ADMIT Student in an Organized Health Care Education/Training Program; ATTEND Internal Medicine